=== PATIENT | male | born 2000 | race Caucasian/White ===

== ENCOUNTER 2023-05-27 22:46 | Emergency (ER) | payer OTHER, SELFPAY ==
[2023-05-27 22:50] VITALS: BP 109/54; PULSE 120; RESP 16; TEMP 37.1; O2SAT 97; BMI 19.3
--- NOTE | 2023-05-27 23:13 | ED.GENADULT ---
HPI - General Adult General Chief complaint: Cough Stated complaint: fever, cough Time Seen by Provider: 05/27/23 23:04 History of Present Illness HPI narrative: This 22-year-old male comes in reporting cough and upper respiratory symptoms that began for 5 days ago. He does not report any fevers. He states that his cough became much more intense and now has developed some pain in his right lateral lower ribs. The pain is reproducible when taking a deep breath. He does arrive with normal temperature but does have some tachycardia. His oximetry is 97% on room air and he is not using any accessory muscles for breathing. Related Data Home Medications Medication Instructions Recorded Confirmed No Known Home Medications 05/27/23 05/27/23 Allergies Allergy/AdvReac Type Severity Reaction Status Date / Time No Known Drug Allergies Allergy Verified 05/27/23 22:54 Review of Systems Status of ROS: Reports: 10 or more systems reviewed and unremarkable except as noted in History and below Narrative: Constitutional: No fevers, no weight gain or loss. Eyes: No discharge. No vision changes. HENT: No congestion, no sore throat, no ear pain. Cardiovascular: No chest pain, no palpitations. Respiratory: No shortness of breath, no wheezes. Coughing as described above. Gastrointestinal: No abdominal pain, no vomiting, no diarrhea. Genitourinary: No dysuria, no hematuria. Musculoskeletal: Normal range of motion. Skin: No rashes, no pruritis. Neurological: No dizziness, weakness, sensory change, speech change. Endo/Heme/Allergies: No bruising or bleeding. No polydipsia. Pysch: no suicidality, no anxiety, no insomnia. All other systems reviewed and are negative. [facility] Social History Smoking Status: Never smoker How often do you have a drink containing alcohol: never AUDIT-C Alcohol total score: 0 Non-prescribed substance use: denies use Exam Narrative: Exam Narrative: Constitutional: Well-developed, well-nourished, no acute distress. HEENT: Normocephalic, atraumatic. Oropharynx shows mild erythema without tonsillar swelling or exudate. Neck: Normal range of motion. Nontender. Supple. Heart: Regular. No murmurs. Normal rate. Intact distal pulses. Lungs: Clear to auscultation. No wheezes, rhonchi, or rales. Chest discomfort in the right lateral lower ribs that is reproducible when taking a deep breath. Abdomen: Normal bowel sounds. Nontender. No rebound tenderness. Genitalia: Deferred. Back: No midline tenderness. Normal range of motion. Extremities: Normal range of motion. No injury. Skin: Intact. No rash. Warm. No erythema or pallor. Neurologic: No altered sensation. No weakness. Alert and oriented. Psychiatric: No suicidality. No anxiety or depression. No insomnia. Nursing notes and vitals signs are reviewed. Const: Vital Signs, click to edit/add: Vital Signs - 24 hr 05/27/23 22:50 Temperature 98.8 F Pulse Rate [Pulse Oximeter] 120 H Respiratory Rate 16 Blood Pressure [Ri t Upper Arm] 109/54 L Pulse Oximetry 97 Oxygen Delivery Me thod Room Air Course Vital Signs Vital signs: Initial Vital Signs Temperature 98.8 F 05/27/23 22:50 Temperature Source Temporal Artery Scan 05/27/23 22:50 Pulse Rate 120 H 05/27/23 22:50 Respiratory Rate 16 05/27/23 22:50 Blood Pressure 109/54 L 05/27/23 22:50 Blood Pressure Mean 72 05/27/23 22:50 Blood Pressure Position Sitting 05/27/23 22:50 Pulse Oximetry 97 05/27/23 22:50 Oxygen Delivery Method Room Air 05/27/23 22:50 Vital Signs Temperature 98.8 F 05/27/23 22:50 Pulse Rate 120 H 05/27/23 22:50 Respiratory Rate 16 05/27/23 22:50 Blood Pressure 109/54 L 05/27/23 22:50 Pulse Oximetry 97 05/27/23 22:50 Oxygen Delivery Method Room Air 05/27/23 22:50 Temperature 98.8 F 05/27/23 22:50 Pulse Rate 120 H 05/27/23 22:50 Respiratory Rate 16 05/27/23 22:50 Blood Pressure 109/54 L 05/27/23 22:50 Pulse Oximetry 97 05/27/23 22:50 Oxygen Delivery Method Room Air 05/27/23 22:50 Medications Administered Medications: Generic Name Dose Route Start Last Admin Trade Name Freq PRN Reason Stop Dose Admin Dexamethasone 10 mg 05/27/23 23:32 05/27/23 23:39 Dexamethasone 10 Mg/Ml Inj PO 05/27/23 23:33 10 mg ONCE ONE Administration Medical Decision Making MDM Narrative Medical decision making narrative: This patient comes in with upper respiratory symptoms as described above. He did receive an oral dose of dexamethasone 10 mg. Nasal pharyngeal and oral swabs returned negative for their respective studies. I did discuss chest x-ray with the patient which he declined in a process of shared decision making. He states that he will come back if symptoms are worsening and further workup can be done at that time. For now he does not want to spend extra money. He is okay to be discharged home and did receive a prescription for Tylenol 3 for symptomatic relief. This came from the [facility]. Lab Data Labs: Lab Results 05/27/23 Range/Units 23:00 SARS-CoV-2 (PCR) Negative SARS-CoV-2 (Negative) Influenza Type A (PCR) Negative PCR FLU A (Negative) Influenza Type B (PCR) Negative PCR FLU B (Negative) RSV (PCR) Negative PCR RSV (Negative) Group A Strep DNA NOT DETECTED (Not Detectd) Discharge Plan Discharge Prescriptions: No Action No Known Home Medications Follow Up/Referrals: Miriam Huddleston MD [Primary Care Provider] -
[2023-05-27 23:27] LABS: Strep A DNA Probe* NOT DETECTED (Not Detectd)
[2023-05-27] MEDS: dexAMETHasone 10 MG/ML inj PO (23:39)
[2023-05-27 23:40] LABS: PCR FLU A Negative PCR FLU A (Negative); PCR FLU B Negative PCR FLU B (Negative); PCR RSV Negative PCR RSV (Negative); SARS PCR* Negative SARS-CoV-2 (Negative)
== END 2023-05-28 00:15 | disposition home or self-care (01) ==
PROVIDERS: Family Medicine; Emergency Provider Emergency Medicine Emergency Medical Services; PCP Pediatrics
DX: J06.9 Acute upper respiratory infection, unspecified (principal)
CPT/HCPCS: 87631; 87651; 99283; 99284; J1100

== ENCOUNTER 2023-09-03 11:12 | Outpatient (CLI) | payer OTHER, SELFPAY | END 2023-09-03 11:13 | disposition home or self-care (01) | LOC: NFLDUCREF 11:13 | PROVIDERS: PCP Pediatrics; Visit Provider Nurse Practitioner | DX: M25.50 Pain in unspecified joint (principal); W57.XXXA Bitten or stung by nonvenomous insect and other nonvenomous arthropods, initial encounter | CPT/HCPCS: 86618 ==